=== PATIENT | female | born 1990 | race Caucasian/White ===

== ENCOUNTER 2017-09-21 15:44 | Emergency (ER) | payer OTHER ==
[~2017-09-21] VITALS: Ht 160 cm; Wt 54.4 kg
--- OUTSIDE RECORDS SUMMARY | 2017-09-21 15:47 | XMS REPORT | Clinical Summary ---
Author Author [facility] Address Unknown Phone Unavailable Care Team Providers Care Sterile Process Tech Name Role Phone PCP Unavailable Allergies No Known Allergies Current Medications Prescription Sig. Disp. Refills Start End Date Status Date OXCARBAZEPINE (TRILEPTAL Take by mouth. Active ORAL) UNKNOWN Med Name: . Active Active Problems Not on file Social History Tobacco Use Types Packs/Day Years Used Date Never Smoker Alcohol Use Drinks/Week oz/Week Comments No Sex Assigned at Date Recorded Not on file Last Filed Vital Signs Not on file Plan of Treatment Not on file Results Not on fileafter 09/20/2016
--- OUTSIDE RECORDS SUMMARY | 2017-09-21 15:47 | XMS REPORT | Clinical Summary ---
Author Author [facility] Address Unknown Phone Unavailable Care Team Providers Care Die Out Worker Name Role Phone John Gerardo PCP Allergies Not on File Current Medications Not on file Active Problems Not on file Encounters Date Type Specialty Care Team Description 04/08/2017 Procedure Pass General Surgery 11/22/2016 Abstract Sports Medicine Nitin Roy MD after 09/20/2016 Social History Tobacco Use Types Packs/Day Years Used Date Never Assessed Sex Assigned at Date Recorded Not on file Last Filed Vital Signs Not on file Plan of Treatment Health Maintenance Due Date Last Done Comments PAP SMEAR 2012 INFLUENZA VACCINE 12/18/2017 Results Not on fileafter 09/20/2016 Insurance Payer Benefit Subscriber ID Type Phone Address Plan / Group CLAUDE ARCE xxxxxxxxx [id number]
== END 2017-09-21 16:44 | disposition home or self-care (01) ==
LOC: ER 15:44
DX: R09.81 Nasal congestion (principal); J01.00 Acute maxillary sinusitis, unspecified
CPT/HCPCS: 99282